=== PATIENT | female | born 1960 | race Caucasian/White ===

== ENCOUNTER 2022-09-06 14:29 | Emergency (ER) | payer MEDICARE, BC ==
[~2022-09-06] VITALS: Ht 170.2 cm; Wt 126.8 kg
[2022-09-06 16:46] LABS: HEMATOCRIT 46.7 % (36.0-47.0); HEMOGLOBIN 15.3 g/dl (12.0-15.5); MEAN CORPUSCULAR HEMOGLOBIN 29.7 pg (27.0-33.0); MEAN CORPUSCULAR HGB CONC 32.8 g/dl (32.0-36.5); MEAN CORPUSCULAR VOLUME 90.5 fl (80.0-96.0); PLATELET COUNT, AUTOMATED 220 10^3/uL (150-450); RED BLOOD COUNT 5.16 10^6/uL (4.00-5.40); WHITE BLOOD COUNT 6.7 10^3/uL (4.0-10.0)
[2022-09-06 16:49] LABS: ALBUMIN 4.4 G/DL (3.2-5.2); ALKALINE PHOSPHATASE 81 U/L (46-116); ALT/SGPT 52 U/L (7.0-40); AST/SGOT 31 U/L (<34); BLOOD UREA NITROGEN 17 MG/DL (9-23); CALCIUM LEVEL 9.7 MG/DL (8.3-10.6); CARBON DIOXIDE LEVEL 28 MMOL/L (20-31); CHLORIDE LEVEL 103 MMOL/L (98-107); CREATININE FOR GFR 0.94 MG/DL (0.55-1.30); GLOMERULAR FILTRATION RATE > 60.0 (>45); GLUCOSE, FASTING 98 MG/DL (74-106); POTASSIUM SERUM 4.2 MMOL/L (3.5-5.1); SODIUM LEVEL 140 MMOL/L (136-145); TOTAL PROTEIN 7.5 G/DL (5.7-8.2)
[2022-09-06] MEDS ORDERED: ALBUTEROL SULFATE 2.5MG/0.5ML INH NEB SOLN NEB ONE (19:00)
[2022-09-06 19:58] VITALS: BP 160/98; TEMP 98.2; O2SAT 93
[2022-09-06] MEDS ORDERED: DOXY-444 PO (20:56)
[2022-09-06] MEDS ORDERED: ALBU6.7H6 INH (20:56)
[2022-09-06] MEDS ORDERED: PRED20TA PO (20:56)
== END 2022-09-06 20:00 | disposition left against medical advice (07) ==
LOC: M ED 14:29
DX: J06.9 Acute upper respiratory infection, unspecified (principal); I10 Essential (primary) hypertension; Z79.899 Other long term (current) drug therapy